=== PATIENT | male | born 1990 | race African-American/Black ===

== ENCOUNTER 2020-08-31 21:19 | Emergency (ER) | payer SELFPAY ==
[~2020-08-31] VITALS: Ht 167.6 cm; Wt 74.0 kg
--- NOTE | 2020-08-31 22:52 | PHYS DOC ---
General Adult EDM: Chief Complaint: ALCOHOL INTOXICATION HPI: HPI: Patient is a 33 year old Israeli male who speaks Swahili was brought in by EMS for evaluation due to being found passed out outside in the cold. Bystanders called 911. Significant language barrier patient does not speak much Trinidadian. EMS thought patient stated he was suicidal. On arrival patient is hypothermic. At the time my exam patient is stating he is cold. He is shivering. Heating blanket in place but patient keeps taking it off and getting up out of bed. Attempted to use [employer] operator phone unsuccessful due to patients complaint of being cold. Review of Systems: Review of Systems: Limited due to language barrier Heart Score: Risk Factors: Risk Factors: DM, Current or recent (<one month) smoker, HTN, HLP, family history of CAD, obesity. Risk Scores: Score 0 - 3: 2.5% MACE over next 6 weeks - Discharge Home Score 4 - 6: 20.3% MACE over next 6 weeks - Admit for Clinical Observation Score 7 - 10: 72.7% MACE over next 6 weeks - Early Invasive Strategies Current Medications: Current Medications Medications (Trade) Dose Ordered Sig/Kalina Start Time Stop Time Status Last Admin Dose Admin Ziprasidone (Geodon Im) 10 mg 1X ONCE 08/31/20 22:15 08/31/20 22:16 UNV Physical Exam: PE: Constitutional: Well developed, well nourished, no acute distress, non-toxic appearance. [] HENT: Normocephalic, atraumatic, bilateral external ears normal, oropharynx moist, no oral exudates, nose normal. [] Eyes: PERRLA, EOMI, conjunctiva normal, no discharge. [] Neck: Normal range of motion, no tenderness, supple, no stridor. [] Cardiovascular:Heart rate regular rhythm, no murmur [] Lungs & Thorax: Bilateral breath sounds clear to auscultation [] Abdomen: Bowel sounds normal, soft, no tenderness, no masses, no pulsatile masses. [] Skin: Warm, dry, no erythema, no rash. [] Back: No tenderness, no CVA tenderness. [] Extremities: No tenderness, no cyanosis, no clubbing, ROM intact, no edema. [] Neurologic: Alert and oriented X 3, normal motor function, normal sensory function, no focal deficits noted. [] Psychologic: Affect normal, judgement normal, mood normal. [] EKG: EKG: [] Radiology/Procedures: Radiology/Procedures: [] Course & Med Decision Making: Course & Med Decision Making Pertinent Labs and Imaging studies reviewed. (See chart for details) [] Patient was evaluated for chief complaint. Work-up consisted of laboratory analysis. Patient's alcohol found to be greater than 200. Patient was observed--to clinical sobriety. Patient ambulated throughout the parchment with a steady gait. Nursing was actually able to speak to the patient in Danish and broken Trin[place]. Patient required Geodon for sedation. Patient was observed to sobriety. Reevaluated at 060 0 hours. Patient ambulated with a normal steady gait. Patient clinically sober. Tim Disclaimer: Tim Disclaimer: This electronic medical record was generated, in whole or in part, using a voice recognition dictation system. Departure Departure Impression: Primary Impression: Alcohol intoxication Disposition: 01 DC HOME SELF CARE/HOMELESS Condition: STABLE Referrals: NO PCP (PCP) Patient Instructions: Alcohol Intoxication MOISES LEA I DO Aug 31, 2020 22:52
[2020-08-31 23:35] LABS: BASO % 1 % (0-3); EOS % 0 % (0-3); HEMATOCRIT 48.5 % (39.0-53.0); HEMOGLOBIN 16.6 g/dL (13.0-17.5); LYMPH # 1.8 x10^3/uL (1.0-4.8); LYMPH % 28 % (24-48); MEAN CORPUSCULAR HEMOGLOBIN 33 pg (25-35); MEAN CORPUSCULAR HGB CONC 34 g/dL (31-37); MEAN CORPUSCULAR VOLUME 95 fL (79-100); MONO # 0.2 x10^3/uL (0.0-1.1); MONO % 3 % (0-9); NEUT # 4.4 x10^3/uL (1.8-7.7); NEUT % 68 % (31-73); PLATELET COUNT 252 x10^3/uL (140-400); RED BLOOD COUNT 5.11 x10^6/uL (4.30-5.70); RED CELL DISTRIBUTION WIDTH 13.2 % (11.5-14.5); WHITE BLOOD COUNT 6.4 x10^3/uL (4.0-11.0)
[2020-08-31] MEDS ORDERED: ZIPRASIDONE IM 20 MG VIAL. IM ONE (23:45)
[2020-08-31 23:46] LABS: CALCIUM 8.7 mg/dL (8.5-10.1); CREATININE 0.9 mg/dL (0.7-1.3); GFR 119.1; POTASSIUM 3.7 mmol/L (3.5-5.1)
[2020-08-31 23:51] LABS: ACETAMIN < 2 mcg/ml (10-30); SALIC < 2.8 mg/dL (2.8-20.0)
[2020-08-31 23:52] LABS: ALBUMIN 4.1 g/dL (3.4-5.0); TOTAL BILIRUBIN 1.1 mg/dL (0.2-1.0); TOTAL PROTEIN 8.4 g/dL (6.4-8.2)
[2020-09-01] VITALS: BP 108/64
[2020-09-01 01:36] LABS: AMPHETAMINE/METHAMPHETAMINE NEG (NEG); BARBITURATES NEG (NEG); BENZODIAZEPINES NEG (NEG); CANNABINOIDS NEG (NEG); COCAINE NEG (NEG); METHADONE NEG (NEG); OPIATES NEG (NEG); PHENCYCLIDINE NEG (NEG)
== END 2020-09-01 06:10 | disposition home or self-care (01) ==
LOC: ER 21:19 → EDBD 21:19 → ER 09-01 06:10
DX: F10.229 Alcohol dependence with intoxication, unspecified (principal)
CPT/HCPCS: 36415; 80053; 80307; 80329; 85025; 96372; 99284; G0480; J3486